=== PATIENT | male | born 1940 | race Caucasian/White ===

== ENCOUNTER 2022-06-03 08:54 | Outpatient (CLI) | payer MEDICARE, SELFPAY ==
--- NOTE | ~2022-06-03 | DEXA_ITS ---
Bone Density Report Name: IFEOMA JORGE V Age: 81 Sex: Male Ethnicity: White Date of : 1940 Indication: hyperparathyroidism; Referring Provider: FLACO LIU Study: Bone densitometry was performed. Exam Date: June 03, 2022 Accession number: [id number] Bone Density: Region BMD T-score Z-score Classification AP Spine(L1-L4) 0.916 -1.6 -0.4 Osteopenia Femoral Neck (Left) 0.659 -2.0 -0.4 Osteopenia Total Hip (Left) 0.908 -0.8 0.2 Normal Femoral Neck (Right) 0.634 -2.2 -0.6 Osteopenia Total Hip (Right) 0.881 -1.0 0.1 Normal Total Hip Mean 0.894 -0.9 0.2 Normal World Health Organization criteria for BMD impression classify patients as: Normal (T-score at or above -1.0), Osteopenia (T-score between -1.0 and -2.5), or Osteoporosis (T-score at or below -2.5). 10-year Fracture Risk(1): Major Osteoporotic Fracture 9.9% Hip Fracture 4.1% Reported Risk Factors: [place] (), Neck BMD=0.634, BMI=28.4 (1) FRAX(R) Version 3.08. Fracture probability calculated for an untreated patient. Fracture probability may be lower if the patient has received treatment. Clinical Information Provided by Patient: Has the following medical conditions: Hyperparathyroidism Patient maximum height was 70 No regular weight bearing exercise Drinks caffeinated beverages Impression: The patient has low bone mass, based on the Right Femoral Neck T-score. The patient has an estimated ten-year risk of hip fracture of 4.1% and an estimated ten-year risk of major fracture of 9.9%, based on the WHO FRAX algorithm. Discussion: BONE DENSITY IS LOW AT ONE OR MORE SKELETAL SITES. THE PATIENT'S BMD AND CLINICAL RISK FACTORS CONTRIBUTE TO THIS PATIENT'S INCREASED RISK OF FRACTURE. This patient's lowest T-score is low at one or more skeletal sites. It meets the World Health Organization's (WHO) criteria for ?low bone mass? (T-score between -1.0 and -2.5). The patient's 10-year risk of hip fracture as calculated by FRAX exceeds the threshold where pharmacological therapy is recommended by the National Osteoporosis Foundation (NOF). However, all treatment decisions require clinical judgment and consideration of individual patient factors, including patient preferences, comorbidities, previous drug use, risk factors not captured in the FRAX model (e.g., frailty, falls, vitamin D deficiency, increased bone turnover, interval significant decline in bone density) and possible under or overestimation of fracture risk by FRAX. The patient should follow a healthful lifestyle (good nutrition with adequate calcium and vitamin D, and appropriate weight-bearing exercise). Follow-Up: Consider repeating this study in 2 years to reassess this patient's status, or sooner if there is some new clinical indication. Reporte
== END 2022-06-03 08:55 | disposition home or self-care (01) ==
PROVIDERS: Visit Provider Internal Medicine Endocrinology, Diabetes & Metabolism
DX: E21.3 Hyperparathyroidism, unspecified (principal); E55.9 Vitamin D deficiency, unspecified; M85.88 Other specified disorders of bone density and structure, other site; M85.852 Other specified disorders of bone density and structure, left thigh; M85.851 Other specified disorders of bone density and structure, right thigh
CPT/HCPCS: 77080

== ENCOUNTER 2025-03-09 10:04 | Emergency (ER) | payer MEDICARE, SELFPAY ==
--- OUTSIDE RECORDS SUMMARY | 2025-02-16 08:15 | XMS_ITS ---
Author Name [facility] [place] [facility] Address [address] [place] [address] Care Team Providers Care Computer Peripheral Equipment Operator Name Role Phone TOBIAS MONTANEZ Primary Care Provider Unavaila ble Insurance Providers: All historical and current Section Date Range: From patient's date of to the date document was created. This section includes the names of all active insurance providers for the patient. Insurance Provider Type of Coverage Plan Name Start of Policy Coverage End of Policy Coverage Group Number Member ID Insurance Provider's Telephone Number Policy Lacey's Name Patient's Relationship to Policy Lacey AARP [facility] (WNR) MEDICARE ADVANTAGE [facility] (WNR) Jul 19, 2022 [id number] RIRI JORGED PATIENT MEDICARE (WNR) MEDICARE (M) PART A Aug 19, 2006 PART A [id number] RIRI JORGE MICHELLE PATIENT MEDICARE (WNR) MEDICARE (M) PART B Aug 19, 2006 PART B [id number] RIRI JORGED PATIENT Selected Encounter This section includes the information on record at [place] for the Encounter. Date/Time Encounter Type Encounter Description Reason Provider Source Feb 16, 2025 01:15 PM OFFICE O/P EST LOW 20 MIN DERMATOLOGY ICD-10-CM D49.2 Neoplasm of unsp behavior of bone, soft tissue, and skin KEATON WALL IHE Encounter Template Text not used by [place] Assessments - Encounter Diagnoses This section includes the primary and secondary diagnoses documented for the Encounter. Date/Time Primary/Secondary Diagnosis Diagnosis Name Provider Source Feb 16, 2025 01:42 PM PRIMARY Neoplasm of unsp behavior of bone, soft tissue, and skin KEATON WALL [facility] Feb 16, 2025 01:42 PM SECONDARY Actinic keratosis KEATON WALL [facility] Feb 16, 2025 01:42 PM SECONDARY Hemangioma of skin and subcutaneous tissue SARAH,CHRISTINE U [facility] Feb 16, 2025 01:42 PM SECONDARY Melanocytic nevi, unspecified SARAH,CHRISTINE U [facility] Feb 16, 2025 01:42 PM SECONDARY Other melanin hyperpigmentation SARAH,CHRISTINE U [facility] Feb 16, 2025 01:42 PM SECONDARY Other seborrheic keratosis [facility] Plan of Treatment: Future Appointments (+ 6 months) and Future Tests (+/- 45 days) The Plan of Treatment section includes future care activities for the patient from [facility]. This section includes future appointments and future orders which are active, pending or scheduled. Future Appointments This section includes appointments that were scheduled to occur 6 months from the date of the Encounter, up to a maximum of 20 appointments. The data comes from all [place] treatment facilities. Appointment Date/Time Appointment Type Appointme nt Facility Name Apr 24, 2025 02:30 PM AMBULATORY - MEDICINE [facility] Social History: Smoking Status (Most current) and Tobacco Use (All prior to encounter date) This section includes the most current, and the historical, smoking and tobacco- related health factors from the [place] facility where the Encounter took place. Current Smoking Status This section includes the most current smoking, or tobacco-related health factor, from the [place] facility where the Encounter took place. Date/Time Current Smoking Status Comment Roxana tyler Mar 29, 2024 01:16 PM [place]-TO[place]ACCO FORMER USER [facility] Tobacco Use History This section includes a history of the smoking, or tobacco-related health factors, that were collected on or before the date of the Encounter. The data comes from the [place] facility where the Encounter took place. Date/Time Smoking Status/Tobacco Use Comment Brian stephens Mar 29, 2024 01:16 PM [place]-TO[place]AC[place] QUIT 15 YRS OR MORE [facility] Encounter Notes: All associated encounter notes This section contains the clinical notes associated to the Encounter. Date/Time Encounter Note(s) Provider Source Feb 16, 2025 01:25 PM DERMATOLOGY NOTE: LOCAL TITLE: DERMATOLOGY NOTE STANDARD TITLE: DERMATOLOGY NOTE DATE OF NOTE: FEB 16, 2025@13:25 ENTRY DATE: FEB 16, 2025@13:25:29 AUTHOR: CHRISTINE JERONIMO EXP COSIGNER: KEATON WALL URGENCY: STATUS: COMPLETED DERMATOLOGY NOTE Has ADDENDA DERMATOLOGY NOTE CC: TREVOR IFEOMA JORGE is a 84 year old WHITE MALE with no hx of skin cancer, hx of AKs, that presents for FBSE. Concerns today: - Patient notes scaly spots on nose and scalp. - Has small lesion behind right ear. Says he think it could be a mosquito bite. Present for a few weeks. Not painful. Not growing. Otherwise, no new, changing, bleeding, non healing lesions of concern. Allergies: PENICILLIN ROS: no fever or chills, no non-healing sores, no mouth or genital sores. PE: - Scaly pink papules on nose x1, vertex scalp x3, L forehead x1, upper lip - mobile soft sq nodule right postauricular - Homogenous brown macules on the trunk/extremities - Homogenous red papules on the trunk/extremiites OTHERWISE General Appearance: Well-appearing MALE, NAD Face: WNL Ears: WNL Scalp, Hair: WNL Neck: WNL Chest: WNL Abd: WNL Back: WNL Upper Extremities: WNL Lower Extremities: WNL Nails: WNL Mood/Affect: WNL A/P: Actinic keratoses - Premalignant nature & risk of transformation to SCC reviewed. - Reviewed diagnosis and risk factors (sun exposure) - Treatment plan: - LN2 applied to x 6 lesions on vertex scalp, right nasal dorsu,, upper cutaneous lip for 5-8 secs today; blister care reviewed - Discussed Efudex in detail; still well controlled and not too extensive, but may be good option in future - Counseled on and reviewed sun protection strategies and skin cancer warning signs Sq Nodule - Right postauricular - DHR vs other mild soft tissue swelling vs reactive LN - Favor benign - Call in one month: if lesion still present, attain [place] ([place]) Seborrheic keratoses Sanchez Angiomas -Benign, reassurance Multiple benign nevi Lentigines - Benign reassurance provided - Recommend sunscreen with SPF30 or greater and sun protective clothing. - Reviewed sun protection strategies and skin cancer warning signs - Continue monthly self-skin exams and regular MD skin exams Return to clinic 6 mo /karen/ Christine Jeronimo MD Resident Physician Signed: 02/16/2025 13:42 /karen/ KEATON WALL MD Dermatology Attending Physician Cosigned: 02/16/2025 13:50 02/16/2025 ADDENDUM STATUS: COMPLETED Reviewed documentation and agree with history, physical examination, assessment, and plan. I was immediately available for the duration of the visit. /karen/ KEATON WALL MD Dermatology Attending Physician Signed: 02/16/2025 13:50 CHRISTINE JERONIMO [facility]
--- OUTSIDE RECORDS SUMMARY | 2025-02-27 06:15 | XMS_ITS | Continuity of Care Document ---
Author Name [facility] Organization [facility] Care Team Providers Care Mechanical Spreader Operator Name Role Phone [facility] Unavailable Unavailable Problems Combined list of problems from Department [facility] and [facility] facilities. It does not include entries that were removed or entered in error. Problem Status Onset Date Problem Type Date of Resolution Comments Source Hearing loss Active Condition [facility] History of macular degeneration Active Condition [facility] Hyperlipidemia Active Condition [facility] Hyperparathyroidism Active Condition [facility] Hypertension Active Condition [facility] Left ventricular hypertrophy Active Condition Jul 26, 2019 Entered By: JON MEDINA Comment: ECHO with EF 55-60% 07/20/2019 [facility] Diagnosis: ICD-10-CM D49.2 Neoplasm of unsp behavior of bone, soft tissue, and skin Active [facility] Diagnosis: ICD-10-CM I10 Essential (primary) hypertension Active Diagnosis [facility] Diagnosis: ICD-10-CM Z71.9 Counseling, unspecified Active Diagnosis [facility] Diagnosis: ICD-10-CM L57.0 Actinic keratosis Active Diagnosis [facility] Medications Combined list of outpatient medications from [facility] and [facility] facilities.Medications provided include 1) outpatient medications from the last 15 months, and 2) patient-reported medications. Medication Details Route Status Patient Instructions Prescription Expires Prescription Number Last Dispense Date Ordering Provider Order Date Order Qty Source AMLODIPINE BESYLATE 5MG TAB TAKE ONE TABLET BY MOUTH ONCE A DAY ORAL ACTIVE Aimee'GERARD MAHAJAN NESTOR A 2022 [facility] ASPIRIN 81MG TAB,EC TAKE ONE TABLET BY MOUTH ONCE A DAY ORAL ACTIVE Aimee'GERARD MAHAJAN NESTOR A 2021 [facility] FINASTERIDE 5MG TAB TAKE ONE TABLET BY MOUTH ONCE A DAY ORAL ACTIVE HIGH,ME TTISA 2023 [facility] FUROSEMIDE 20MG TAB TAKE ONE TABLET BY MOUTH EVERY MORNING ORAL ACTIVE HIGH,ME TTISA 2023 [facility] NEBIVOLOL 5MG TAB TAKE ONE TABLET BY MOUTH ONCE A DAY ORAL ACTIVE HIGH,ME TTISA 2023 [facility] NON-FORMULA RY TAB TAKE EYE SUPPORT BY MOUTH ONCE A DAY ORAL ACTIVE Aimee'GERARD MAHAJAN A 2021 [facility] SIMVASTATIN 80MG TAB TAKE ONE-HALF TABLET BY MOUTH EVERY EVENING ORAL ACTIVE Aimee'GERARD MAHAJAN NESTOR A 2021 [facility] Allergies, Adverse Reactions, Alerts Combined list of allergies from Department of Defense and Veterans Affairs facilities. It does not include entries that were removed or entered in error. Substance Category Reaction Severity Reaction type Status Date Reported Comments Source PENICILLIN Propensity to adverse reactions to drug (finding) active 9 [facility] Immunizations Combined list of available immunizations from the Department of [facility] and Veterans Affairs facilities. 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 Status Comments Source INFLUENZA, HIGH-DOSE, TRIVALENT, PF 2023 MEGAN ABARCA A RIGHT DELTO ID [id number] 135 complet ed Completed Series, [place], [facility] INFLUENZA, ADJUVANTED, QUADRIVALENT, PF 1 2022 205 complet ed HISTORICA L INFORMATI ON - FROM OTHER REGISTRY, [facility] INFLUENZA, HIGH-DOSE, QUADRIVALENT 6 2021 197 complet ed HISTORICA L INFORMATI ON - FROM OTHER [facility], [facility] INFLUENZA VACCINE, QUADRIVALENT, ADJUVANTED 2020 205 complet ed [facility] ZOSTER RECOMBINANT 2 2020 187 complet ed [facility] PNEUMOCOCCAL POLYSACCHARID E PPV23 2020 NONE 33 complet ed Completed Series, [facility] ZOSTER RECOMBINANT 1 2020 NONE 187 complet ed [facility] COVID-19 (PFIZER), MRNA, LNP-S, PF, 30 MCG/0.3 ML DOSE 2 2020 208 complet ed PFR; [id number]; 1 [facility] COVID-19 (PFIZER), MRNA, LNP-S, PF, 30 MCG/0.3 ML DOSE 1 2020 208 complet ed PFR; [id number]; 1 [facility] INFLUENZA, HIGH-DOSE, QUADRIVALENT 5 2019 197 complet ed HISTORICA L INFORMATI ON - FROM OTHER REGISTRY, [facility] INFLUENZA, UNSPECIFIED FORMULATION 2019 88 complet ed [facility] INFLUENZA, INJECTABLE, QUADRIVALENT, PRESERVATIVE FREE 2018 150 complet ed [facility] TDAP 1 2018 115 complet ed HISTORICA L INFORMATI ON - FROM OTHER REGISTRY, [facility] INFLUENZA, HIGH DOSE SEASONAL 4 2017 135 complet ed HISTORICA L INFORMATI ON - FROM OTHER REGISTRY, [facility] N PNEUMOCOCCAL POLYSACCHARID E PPV23 1 2017 33 complet ed HISTORICA L INFORMATI ON - FROM OTHER REGISTRY, [facility] N INFLUENZA, HIGH DOSE SEASONAL 3 2016 135 complet ed HISTORICA L INFORMATI ON - FROM OTHER REGISTRY, [facility] N INFLUENZA, HIGH DOSE SEASONAL 2 2015 135 complet ed HISTORICA L INFORMATI ON - FROM OTHER REGISTRY, [facility] N INFLUENZA, HIGH DOSE SEASONAL 1 2014 135 complet ed HISTORICA L INFORMATI ON - FROM OTHER REGISTRY, [facility] N Vital Signs Combined list of inpatient and outpatient Vital Signs from Department of Defense and Veterans Affairs, ranging from 12 months to all on record, depending upon the facility. Vital Sign Value Date Comments Source SYSTOLIC BLOOD PRESSURE 165 04/04/2024 09:59:45 [facility] DIASTOLIC BLOOD PRESSURE 75 04/04/2024 09:59:45 [facility] PULSE OXIMETRY 96 04/04/2024 09:59:45 S Williams CELESTE [facility] WEIGHT 198 04/04/2024 09:59:[facility] BMI 28 kg/m2 04/04/2024 09:59:[facility] PAIN 0 04/04/2024 09:59:45 [facility] HEIGHT 70 04/04/2024 09:59:[address] [facility] TEMPERATURE 98.4 04/04/2024 09:59:45 [facility] CE[facility] PULSE 63 04/04/2024 09:59:[facility] RESPIRATION 18 04/04/2024 09:59:45 [facility] Encounters Combined list of: 1) Encounters from Department of Veterans Affairs facilities going backup to the last 18 months, not all VA inpatient encounters are included; 2) Encounters from the Department of [facility] facilities going backup to 280 months. Location Location Details Encounter Type Encounter Number Reason For Visit Attending Provider ADM Date DC Date Status Disposition Source [facility] OFFICE O/P EST LOW 20 MIN [id number] Diagnos is: ICD-10- CM L57.0 Actinic keratos is MARTI HOOVER 01/27 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 OFFICE O/P EST LOW 20 MIN [id number] Diagnos is: ICD-10- CM D49.2 Neoplas m of unsp behavio r of bone, soft tissue, and skin AB DUKE BY RR 02/16 [facility] Social History Combined list of available smoking, tobacco, and other social history from Department of Defense and [facility] Affairs facilities. Social History Type Response Date Comment Sourc e Tobacco smoking status NHIS [facility]-TO[facility]ACCO FORMER USER 03/29/2024 [facility] History of tobacco use [place] 1 5 YRS OR MORE 03/29/2024 [facility] History of tobacco use [place] FOR[place] US[place] 04/07/2023 [facility] History of tobacco use [place] FOR[place] 04/08/2022 [facility] History of tobacco use [place] FOR[place] 12/25/2020 [facility] History of tobacco use [place] 1 5 YRS OR MORE 06/27/2019 [facility] Plan of Care List of future care activities from Department [facility] facilities. Additional future care activities may be listed in the Assessment and Plan section. Date/Time Care Activity Care Activity Detail Facili ty 04/24/2025 AMBULATORY - MEDICINE AMBULATORY - MEDICI NE [facility]
--- OUTSIDE RECORDS SUMMARY | 2025-02-27 06:15 | XMS_ITS | Continuity of Care Document ---
Author Name [facility] Organization [facility] Care Team Providers Care Parts Designer Name Role Phone [facility] Unavailable Unavailable Problems Combined list of problems from Department [facility] and [facility] facilities. It does not include entries that were removed or entered in error. Problem Status Onset Date Problem Type Date of Resolution Comments Source Hearing loss Active Condition [facility] History of macular degeneration Active Condition [facility] Hyperlipidemia Active Condition [facility] Hyperparathyroidism Active Condition [facility] Hypertension Active Condition [facility] Left ventricular hypertrophy Active Condition Jul 26, 2019 Entered By: JON MEDINA Comment: ECHO with EF 55-60% 07/20/2019 [facility] Diagnosis: ICD-10-CM D49.2 Neoplasm of unsp behavior of bone, soft tissue, and skin Active [facility] Diagnosis: ICD-10-CM I10 Essential (primary) hypertension Active Diagnosis [facility] Diagnosis: ICD-10-CM Z71.9 Counseling, unspecified Active Diagnosis [facility] Diagnosis: ICD-10-CM L57.0 Actinic keratosis Active Diagnosis [facility] Medications Combined list of outpatient medications from [facility] and [facility] facilities.Medications provided include 1) outpatient medications from the last 15 months, and 2) patient-reported medications. Medication Details Route Status Patient Instructions Prescription Expires Prescription Number Last Dispense Date Ordering Provider Order Date Order Qty Source AMLODIPINE BESYLATE 5MG TAB TAKE ONE TABLET BY MOUTH ONCE A DAY ORAL ACTIVE Aimee'GERARD MAHAJAN NESTOR A 2022 [facility] ASPIRIN 81MG TAB,EC TAKE ONE TABLET BY MOUTH ONCE A DAY ORAL ACTIVE Aimee'GERARD MAHAJAN NESTOR A 2021 [facility] FINASTERIDE 5MG TAB TAKE ONE TABLET BY MOUTH ONCE A DAY ORAL ACTIVE HIGH,ME TTISA 2023 [facility] FUROSEMIDE 20MG TAB TAKE ONE TABLET BY MOUTH EVERY MORNING ORAL ACTIVE HIGH,ME TTISA 2023 [facility] NEBIVOLOL 5MG TAB TAKE ONE TABLET BY MOUTH ONCE A DAY ORAL ACTIVE HIGH,ME TTISA 2023 [facility] NON-FORMULA RY TAB TAKE EYE SUPPORT BY MOUTH ONCE A DAY ORAL ACTIVE Aimee'GERARD MAHAJAN A 2021 [facility] SIMVASTATIN 80MG TAB TAKE ONE-HALF TABLET BY MOUTH EVERY EVENING ORAL ACTIVE Aimee'GERARD MAHAJAN NESTOR A 2021 [facility] Allergies, Adverse Reactions, Alerts Combined list of allergies from Department of Defense and Veterans Affairs facilities. It does not include entries that were removed or entered in error. Substance Category Reaction Severity Reaction type Status Date Reported Comments Source PENICILLIN Propensity to adverse reactions to drug (finding) active 9 [facility] Immunizations Combined list of available immunizations from the Department of [facility] and Veterans Affairs facilities. 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 Status Comments Source INFLUENZA, HIGH-DOSE, TRIVALENT, PF 2023 MEGAN ABARCA A RIGHT DELTO ID [id number] A 135 complet ed Completed Series, ADMINISTE RED AT CT, [facility] INFLUENZA, ADJUVANTED, QUADRIVALENT, PF 1 2022 205 complet ed HISTORICA L INFORMATI ON - FROM OTHER REGISTRY, [facility] INFLUENZA, HIGH-DOSE, QUADRIVALENT 6 2021 197 complet ed HISTORICA L INFORMATI ON - FROM OTHER [facility], [facility] INFLUENZA VACCINE, QUADRIVALENT, ADJUVANTED 2020 205 complet ed [facility] ZOSTER RECOMBINANT 2 2020 187 complet ed [facility] PNEUMOCOCCAL POLYSACCHARID E PPV23 2020 NONE 33 complet ed Completed Series, [facility] ZOSTER RECOMBINANT 1 2020 NONE 187 complet ed [facility] COVID-19 (PFIZER), MRNA, LNP-S, PF, 30 MCG/0.3 ML DOSE 2 2020 208 complet ed PFR; [id number]; 1 [facility] COVID-19 (PFIZER), MRNA, LNP-S, PF, 30 MCG/0.3 ML DOSE 1 2020 208 complet ed PFR; [id number]; 1 [facility] INFLUENZA, HIGH-DOSE, QUADRIVALENT 5 2019 197 complet ed HISTORICA L INFORMATI ON - FROM OTHER REGISTRY, [facility] INFLUENZA, UNSPECIFIED FORMULATION 2019 88 complet ed [facility] INFLUENZA, INJECTABLE, QUADRIVALENT, PRESERVATIVE FREE 2018 150 complet ed [facility] TDAP 1 2018 115 complet ed HISTORICA L INFORMATI ON - FROM OTHER REGISTRY, [facility] INFLU[facility], HIGH DOSE SEASONAL 4 2017 135 complet ed HISTORICA L INFORMATI ON - FROM OTHER REGISTRY, [facility] N PNEUMOCOCCAL POLYSACCHARID E PPV23 1 2017 33 complet ed HISTORICA L INFORMATI ON - FROM OTHER REGISTRY, [facility] INFLUENZA, HIGH DOSE SEASONAL 3 2016 135 complet ed HISTORICA L INFORMATI ON - FROM OTHER REGISTRY, [facility] INFLUENZA, HIGH DOSE SEASONAL 2 2015 135 complet ed HISTORICA L INFORMATI ON - FROM OTHER REGISTRY, [facility] INFLUENZA, HIGH DOSE SEASONAL 1 2014 135 complet ed HISTORICA L INFORMATI ON - FROM OTHER REGISTRY, [facility] N Vital Signs Combined list of inpatient and outpatient Vital Signs from Department of Defense and Veterans Affairs, ranging from 12 months to all on record, depending upon the facility. Vital Sign Value Date Comments Source SYSTOLIC BLOOD PRESSURE 165 04/04/2024 09:59:45 [facility] DIASTOLIC BLOOD PRESSURE 75 04/04/2024 09:59:45 [facility] PULSE OXIMETRY 96 04/04/2024 09:59:45 S Williams CELESTE [facility] WEIGHT 198 04/04/2024 09:59:[facility] BMI 28 kg/m2 04/04/2024 09:59:[facility] PAIN 0 04/04/2024 09:59:[address] [facility] HEIGHT 70 04/04/2024 09:59:[address] [facility] TEMPERATURE 98.4 04/04/2024 09:59:45 [facility] PULSE 63 04/04/2024 09:59:[facility] RESPIRATION 18 04/04/2024 09:59:45 [facility] Encounters Combined list of: 1) Encounters from Department of Veterans Affairs facilities going backup to the last 18 months, not all VA inpatient encounters are included; 2) Encounters from the Department of [facility] facilities going backup to 280 months. 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 OFFICE O/P EST LOW 20 MIN [id number] Diagnos is: ICD-10- CM D49.2 Neoplas m of unsp behavio r of bone, soft tissue, and skin AB DUKE BY RR 02/16 [facility] Social History Combined list of available smoking, tobacco, and other social history from Department of Defense and [facility] Affairs facilities. Social History Type Response Date Comment Sourc e Tobacco smoking status NHIS VA-TOBACCO FORMER USER 03/29/2024 [facility] History of tobacco use CT-TOBACCO QUIT 1 5 YRS OR MORE 03/29/2024 [facility] History of tobacco use CT-TOBACCO FORMER USER 04/07/2023 [facility] History of tobacco use CT-TOBACCO FORMER USER 04/08/2022 [facility] History of tobacco use CT-TOBACCO FORMER USER 12/25/2020 [facility] History of tobacco use CT-TOBACCO QUIT 1 5 YRS OR MORE 06/27/2019 [facility] Plan of Care List of future care activities from Department [facility] facilities. Additional future care activities may be listed in the Assessment and Plan section. Date/Time Care Activity Care Activity Detail Facili ty 04/24/2025 AMBULATORY - MEDICINE AMBULATORY - MEDICI NE [facility]
--- NOTE | ~2025-03-09 | XR_ITS ---
EXAMINATION: XR wrist LT min 3V DATE: 03/09/2025 10:51 INDICATION: Left wrist injury and swelling TECHNIQUE: Posteroanterior, ulnar deviation, oblique, and lateral views of the left wrist were obtained. COMPARISON: none FINDINGS: Bone alignment is normal. There are couple small ossific densities project over the soft tissues dorsal to the level of the midcarpal joint with couple additional small ossific density projecting volar to the lunate on the lateral projection most likely either degenerative loose bodies or heterotopic ossicles related to chronic soft tissue injury. Could not exclude a distracted avulsion fracture arising from the dorsum of the triquetrum although a the margins of the ossicle appears corticated and no definitive donor site is not identified and suspicion for fracture is low. Polyarticular osteoarthritis, moderate severity at the first carpometacarpal joint and mild at the distal radioulnar, wrist, mi dcarpal, triscaphe, first metacarpophalangeal and first interphalangeal joints. IMPRESSION: 1. Small ossific density possibly related to a dorsal triquetral avulsion fracture although given appearance would favor either a degenerative loose body or heterotopic ossicle related to more chronic injury. Correlate for point tenderness at the dorsal ulnar aspect of the carpus. 2. Mild to moderate polyarticular osteoarthritis at the visualized left hand and wrist greatest at the first carpometacarpal joint. Reviewed, dictated and finalized at location A. IMPRESSION: 1. Small ossific density possibly related to a dorsal triquetral avulsion fract ure although given appearance would favor either a degenerative loose body or h eterotopic ossicle related to more chronic injury. Correlate for point tenderne ss at the dorsal ulnar aspect of the carpus. 2. Mild to moderate polyarticular osteoarthritis at the visualized left hand an d wrist greatest at the first carpometacarpal joint.
--- OUTSIDE RECORDS SUMMARY | 2025-03-09 10:07 | XMS_ITS | Clinical Summary ---
Author Organization [facility] Address [address] [facility] [place] [address] Phone Care Team Providers Care Actuarial Mathematician Name Role Phone Christiano Ivan MD Primary Care Provider [phone] Allergies Active Allergy Reactions Criticality Noted Date Comments Penicillin Other (See Comments) 07/07/2019 Medications aspirin (ECOTRIN EC) 81 mg Tablet, Delayed Release (E.C.) Take 81 mg by mouth daily. 2 Active simvastatin (ZOCOR) 80 mg tablet Take 40 mg by mouth daily. 2 Active OMEGA-3 FATTY ACIDS-FISH OIL ORAL Take by mouth. Active testosterone (ANDROGEL) 20.25 mg/1.25 gram (1.62 %) Gel in Metered-dose Pump Apply to affected area daily. 4 Active finasteride (PROSCAR) 5 mg tablet Take 5 mg by mouth daily. 4 Active lisinopriL (PRINIVIL) 40 mg tablet Take 1 Tablet (40 mg) by mouth daily. 90 Tablet 3 4 Active amLODIPine (NORVASC) 5 mg tabletIndicatio ns:Edema of both legs Take 1 Tablet (5 mg) by mouth daily. 90 Tablet 3 5 Active vit A/vit C/vit E/zinc/copper (ICAPS AREDS ORAL) Take by mouth. Active vitamin D3/vitamin K2, MK4, (K2 PLUS D3 ORAL) Take 120 mcg by mouth. Active hydroCHLOROthia zide 25 mg tablet Take 1 Tablet (25 mg) by mouth daily. 90 Tablet 3 5 Active nebivoloL (BYSTOLIC) 5 mg Tablet Take 1 Tablet (5 mg) by mouth daily. 90 Tablet 3 5 Active nebivoloL (BYSTOLIC) 5 mg Tablet Take 5 mg by mouth daily. 2 02/28/20 25 Discontinu ed(Reorder ) Active Problems Patient Care Coordination No te Formatting of this note migh t be different from the original. Surjit Ornelas MD--Motel Keeper ([facility] @ ) Problem Noted Date Diagnosed Date Edema of both legs 12/03/2023 Venous insufficiency of right leg 12/03/2023 Benign hypertension 12/03/2023 DONALD (dyspnea on exertion) 11/03/2023 Encounters Date Type Department Care Team Description 03/08/2025 Telephone [facility] At [address] [place] [address] Surjit Ornelas MD Labs Only 03/06/2025 External Device Data STL ABSTRACTION Provider, Abstract 03/06/2025 External Device Data STL ABSTRACTION Provider, Abstract 02/27/2025 11:15 AM CDT Office Visit [facility] [address] [place] [address] Surjit Ornelas MD Benign hypertension (Primary Dx); Edema of both legs; Encounter for pre-operative cardiovascular clearance 01/31/2025 External Device Data STL ABSTRACTION Provider, Abstract 01/31/2025 External Device Data STL ABSTRACTION Provider, Abstract 01/31/2025 External Device Data STL ABSTRACTION Provider, Abstract 01/30/2025 External Device Data STL ABSTRACTION Provider, Abstract 01/02/2025 External Device Data STL ABSTRACTION Provider, Abstract 12/12/2024 External Device Data STL ABSTRACTION Provider, Abstract 12/07/2024 External Device Data STL ABSTRACTION Provider, Abstract from Last 3 Months Social History Tobacco Use Types Packs/Day Years Used Date Smoking Tobacco: Never Smokeless Tobacco: Never Tobacco Cessation:Counseling Given: Not Answered Alcohol Use Standard Drinks/Week Comments Not Currently 1 (1 standard drink = 0.6 oz pur e alcohol) Sex and Gender Information Value Date Recorded Sex Assigned at Not on file Legal Sex Male 1:10 PM CDT Gender Identity Not on file Sexual Orientation Not on file Last Filed Vital Signs Vital Sign Reading Time Taken Comments Blood Pressure 150/78 02/27/2025 11:19 AM CDT Pulse 54 02/27/2025 11:19 AM CDT Temperature - - Respiratory Rate - - Oxygen Saturation 97% 02/27/2025 11:19 AM CDT Inhaled Oxygen Concentration - - Weight 88.5 kg (195 lb) 02/27/2025 11:19 AM CDT Height 177.8 cm (5' 10) 02/27/2025 11:19 AM CDT Body Mass Index 27.98 02/27/2025 11:19 AM CDT Plan of Treatment Upcoming Encounters Date Type Department Care Team (Late st Contact Info) Description 10/09/2025 11:30 AM CDT Office Visit [facility] At [address] [place] [address] Surjit Ornelas MD [address] [place] [address] [address] [place] [address] Health Maintenance Due Date Last Done Comments RSV VACCINE (60+ or ) (1 - 1-dose 75+ series) 2016 PNEUMOCOCCAL VACCINE 50+ YEA RS (2 of 2 - PCV) 12/25/2021 12/25/2020, 05/16/2018 COVID-19 Vaccine (3 - 2023-2 5 season) 2024 09/11/2020, 08/21/2020 INFLUENZA VACCINE (#1) 2025 , 05/25/2023, 06/14/2022, Additional history exists DTAP/TDAP/TD VACCINES (2 - T d or Tdap) 11/28/2028 11/28/2018 ZOSTER VACCINE Completed 04/25/2021, 12/25/2020 Insurance [facility] [id number] Care Teams Actuarial Mathematician Relationship Specialty Start Date End Date Christiano Ivan MD [facility] [place] [phone] PCP - General Family Practice 11/03/23
--- OUTSIDE RECORDS SUMMARY | 2025-03-09 10:07 | XMS_ITS | Encounter Summary ---
Author Organization [facility] Address [address] [place] [address] Care Team Providers Care Spray Crew Name Role Phone Christiano Ivan MD Primary Care Provider [phone] Reason for Visit * Reason Onset Date Comments Labs Only 03/08/2025 Encounter Details Date Type Department Care Team (Late st Contact Info) Description 03/08/2025 Telephone [facility] At [address] [place] [address] Surjit Ornelas MD [address] [place] [address] [address] [place] [address] Labs Only Social History Tobacco Use Types Packs/Day Years Used Date Smoking Tobacco: Never Smokeless Tobacco: Never Alcohol Use Standard Drinks/Week Comments Not Currently 1 (1 standard drink = 0.6 oz pur e alcohol) Sex and Gender Information Value Date Recorded Sex Assigned at Not on file Legal Sex Male 1:10 PM CDT Gender Identity Not on file Sexual Orientation Not on file documented as of this encounter Miscellaneous Notes * Telephone Encounter - Elliot Cabrera RN - 03/08/2025 11:48 AM CDT PC to pt. He explains he was supposed to have blood test following change to his diuretic. Pt also has not had recent lipid panel to send us, per PAVAN. Lipid panel and BMP ordered. Instructions pgiven. Pt verbalizes understanding. No further questions at this time. * Telephone Encounter - RejigeorgeTomasTanja Trevor - 03/08/2025 10:50 AM CDT Pt called today and thought he was suppose to go have blood work done but there is no lipid order in his chart [id number] Thanks documented in this encounter Plan of Treatment Upcoming Encounters Date Type Department Care Team (Late st Contact Info) Description 10/09/2025 11:30 AM CDT Office Visit [facility] At [place] [address] [address] [place] [address] Surjit Ornelas MD [facility] [address] [place] [address] Pending Results Name Type Priority Associated Diagnoses Date /Time BASIC METABOLIC PANEL Lab Routine Edema of both legs Benign hypertension Mixed hyperlipidemia 03/09/2025 9:53 AM CDT LIPID PANEL Lab Routine Mixed hyperlipidemia 03/09/2025 9:53 AM CDT Scheduled Orders Name Type Priority Associated Diagnoses Orde r Schedule BASIC METABOLIC PANEL Lab Routine Edema of both legs Benign hypertension Mixed hyperlipidemia Expected: 03/08/2025, Expires: 03/08/2026 LIPID PANEL Lab Routine Mixed hyperlipidemia Expected: 03/08/2025, Expires: 03/08/2026 documented as of this encounter Visit Diagnoses Diagnosis Mixed hyperlipidemia- Primary Edema of both legs Edema Venous insufficiency of right leg Benign hypertension Essential hypertension, benign documented in this encounter Care Teams Spray Crew Relationship Specialty Start Date End Date Christiano Ivan MD [address] [place] [phone] PCP - General Family Practice 11/03/23 documented as of this encounter
--- OUTSIDE RECORDS SUMMARY | 2025-03-09 10:07 | XMS_ITS | Clinical Summary ---
Author Organization [facility] Address [address] [place] [address] Care Team Providers Care Fisher Clam Name Role Phone Joselin Vences PA-C Primary Care Provider [phone] Social History Tobacco Use Types Packs/Day Years Used Date Smoking Tobacco: Never Assessed Sex and Gender Information Value Date Recorded Sex Assigned at Not on file Legal Sex Male 8:25 PM CDT Gender Identity Not on file Sexual Orientation Not on file Plan of Treatment Health Maintenance Due Date Last Done Comments Annual Medicare Wellness Visit 2006 RSV Immunization or 60+ Years (1 - 1-dose 75+ series) 2016 Pneumococcal Vaccine: 50+ Years (2 of 2 - PCV) 12/25/2021 12/25/2020, 05/16/2018 COVID-19 Vaccine (3 - 2023-2 5 season) 2024 09/11/2020, 08/21/2020 DTaP, Tdap and Td Vaccines ( 2 - Td or Tdap) 11/28/2028 11/28/2018 Zoster Vaccines Completed 04/25/2021, 12/25/2020 Meningococcal B Vaccine Aged Out No l onger eligible based on patient's age to complete this topic Meningococcal Vaccine Aged Out No miryam jj eligible based on patient's age to complete this topic RSV Immunizations Under 20 Months Aged Out No longer eligible b ased on patient's age to complete this topic Insurance Care Teams Fisher Clam Relationship Specialty Start Date End Date Joselin Vences PA-C [address] [place], [place] [id number] [place] [address] PCP - General PHYSICIAN HANDER IN 10/16/24
[2025-03-09 10:14] VITALS: BP 155/71; PULSE 56; RESP 18; TEMP 36.2; O2SAT 98
--- NOTE | 2025-03-09 10:33 | ED_ITS ---
HPI - Extremity Injury (Upper) General Chief Complaint: Extremity Injury, Upper Stated Complaint: Swollen L Hand Time Seen by Provider: 03/09/25 10:32 Source: patient and RN notes reviewed Mode of arrival: ambulatory Limitations: no limitations History of Present Illness HPI narrative: 84-year-old male presents with concern for left wrist swelling. He reports a few days ago he fell off the ladder and has had mid wrist pain and swelling. He has been wearing a brace. He denies any decreased strength, sensation, range of motion in the wrist or digits. MD complaint: injury to: left and wrist Related Data Home Medications ?Medication ?Instructions ?Recorded ?Confirmed ?Last Taken ?Type aspirin 81 mg tablet,delayed 81 mg PO DAILY 12/09/20 0 03/09/25 Unknown History release (Adult Low Dose Aspirin) Eye Support Suuplement [facility] 04/02/22 12/05/24 Un known History Memory and Brain Supplement [facility] 04/02/22 12/05/24 Unknown History omega 1-mut-tva-fish oil 100 cap PO 11/11/22 12/05/24 Unknown History mg-160 mg-1,000 mg capsule (Fish Oil) vitamin K2 45 mcg capsule 45 mcg PO DAILY 11/30/23 Unknown History hydrochlorothiazide 25 mg tablet mg 03/09/25 Unknown History Allergies Allergy/AdvReac Type Severity Reaction Status Date / Time poison jordan extract Allergy Intermediate rash Verified 03/09/25 10:18 Penicillins Allergy Mild rash Verified 03/09/25 10:18 Review of Systems Review of Systems: CONSTITUTIONAL: Denies malaise, chills, sweats, or fever. SKIN: Denies rash or itching, open skin, laceration, abrasion, redness, warmth MUSCULOSKELETAL: Reports left wrist pain and swelling NEUROLOGIC: Denies numbness, weakness All systems reviewed & are unremarkable except as noted in HPI and below PMFSH Past Medical History Medical History Macular degeneration Vitamin D deficiency, unspecified Osteopenia Hyperparathyroidism Testicular hypofunction Hyperglycemia, unspecified Essential (primary) hypertension Hyperlipidemia GERD (gastroesophageal reflux disease) Arthritis Enlarged RV (right ventricle) Surgical History Surgical History History of right cataract surgery History of tonsillectomy at age 6 Family History Family History (Reviewed 01/15/25 @ 10:13 by Natali Turner [facility]) Grandparent Diabetes mellitus Father Cerebrovascular accident Mother Lung cancer Sibling Lung cancer Heart disease Social History Social History (Reviewed 01/15/25 @ 10:13 by Natali Turner [facility]) Social History: 01/15/25 Patient declined SDOH Smoking status: Never smoker Second hand tobacco smoke exposure: No Alcohol intake: current Drinks per week: 14 Alcohol use details: beer Substance use: never Substance use type: does not use Lack of Transportation: No Lack of Food: Never True Current Housing: I Have Housing Concerned About Future Housing: No Difficulty Paying Gas/Electric Bills: No Difficulty Paying for Meds: No Currently Unemployed: No Education: High School Diploma/GED Difficulty w/ Childcare or Family Care: No Living arrangements: with family Occupation/Education: retired Gender identity (if verbalized by the patient): Male Spiritual care concerns: No Agree to blood products: Yes Comments At time of signature, agree with nursing past medical, surgical, social and family history. There is no relevant family history pertinent to the presenting complaint Exam Narrative: GENERAL: Well-appearing, well-nourished, and in no acute distress. HEAD: Normocephalic, atraumatic. EYES: PERRLA, conjunctivae clear NECK: Supple. CHEST: Speaks in full sentences. No respiratory distress. HEART: Regular rate and rhythm. Normal and equal peripheral pulses. EXTREMITIES: Left wrist, hand, digits have grossly normal strength and sensation, grossly normal range of motion. Moderate wrist and hand edema witho ut erythema, warmth, ecchymosis. 5/5 strength with wrist in digit flexion and extension. Normal sensation with sensitivity to light touch and pain. Mid wrist tenderness, no other tenderness noted. No open wounds, no skin tenting, no devitalized tissue or atrophy, no trophic changes, no obvious deformity, alignment normal, nearby joints and structures intact. Distal pulses palpable and equal bilaterally, skin warm, dry, pink. Capillary refill less than 3 seconds. SKIN: Warm, dry, no rash. NEURO: Alert and oriented x3. PSYCH: Normal mood and affect Course Course Emergency Course: Patient has been wearing a brace that does not allow movement of the wrist. Patient like to wear brace and does not want a splint applied urgent care today. Patient's brace is adult currently a stabilizing the wrist. Patient is aware of diagnosis, understands and agrees to treatment plan. Anticipatory guidance given. Patient agrees to follow-up as directed and is aware of reasons to seek care at the emergency department. Portions of this record may have been created with voice recognition software Level of Care: Express Care Visit Vital Signs Vital signs: Vital Signs Temperature 97.1 F L 03/09/25 10:14 Pulse Rate 56 L 03/09/25 10:14 Respiratory Rate 18 03/09/25 10:14 Blood Pressure 155/71 H 03/09/25 10:14 Pulse Oximetry 98 03/09/25 10:14 Oxygen Delivery Room Air 03/09/25 10:14 Temperature 97.1 F L 03/09/25 10:14 Pulse Rate 56 L 03/09/25 10:14 Respiratory Rate 18 03/09/25 10:14 Blood Pressure 155/71 H 03/09/25 10:14 Pulse Oximetry 98 03/09/25 10:14 Oxygen Delivery Room Air 03/09/25 10:14 Reviewed. MDM - Extremity Injury (Upper) MDM Narrative Medical decision making narrative: Patients injury and pain is consistent with musculoskeletal etiology. No signs of neurological or vascular compromise on exam. Compartments and tissues are soft without signs of compartment syndrome. Pain is felt appropriate for further evaluation on an outpatient basis. Imaging Data My impression: Images reviewed, interpreted by radiologist, agree, see report. Radiologist's impression: EXAMINATION: XR wrist LT min 3V DATE: 03/09/2025 10:51 INDICATION: Left wrist injury and swelling TECHNIQUE: Posteroanterior, ulnar deviation, oblique, and lateral views of the left wrist were obtained. COMPARISON: none FINDINGS: Bone alignment is normal. There are couple small ossific densities project over the soft tissues dorsal to the level of the midcarpal joint with couple additional small ossific density projecting volar to the lunate on the lateral projection most likely either degenerative loose bodies or heterotopic ossicles related to chronic soft tissue injury. Could not exclude a distracted avulsion fracture arising from the dorsum of the triquetrum although a the margins of the ossicle appears corticated and no definitive donor site is not identified and suspicion for fracture is low. Polyarticular osteoarthritis, moderate severity at the first carpometacarpal joint and mild at the distal radioulnar, wrist, midcarpal, triscaphe, first metacarpophalangeal and first interphalangeal joints. IMPRESSION: 1. Small ossific density possibly related to a dorsal triquetral avulsion fracture although given appearance would favor either a degenerative loose body or heterotopic ossicle related to more chronic injury. Correlate for point tenderness at the dorsal ulnar aspect of the carpus. 2. Mild to moderate polyarticular osteoarthritis at the visualized left hand and wrist greatest at the first carpometacarpal joint. Critical Care Time Critical Care Time Critical Care Time: No Discharge Plan Discharge Clinical Impression: Fracture of triquetral bone of left wrist Patient Disposition: Home Condition: Stable Instructions: Wrist Fracture in Adults (ED) Additional Instructions: Please rest, ice and elevate the affected extremity. Please take Motrin 600mg every 8 hours, as needed, for pain (take with food). Follow up with Orthopedic Surgery in 1-2 days for further evaluation - please call for an appointment. Keep splint on. Please go to ER immediately for increased pain, tingling/numbness, swelling, redness, and fever Patient Language: Vietnamese Prescriptions: No Action hydrochlorothiazide 25 mg tablet Memory and Brain Supplement [facility] Eye Support Suuplement [facility] Fish Oil 100-160-1,000 mg capsule PO vitamin K2 45 mcg capsule 45 mcg PO DAILY aspirin [Adult Low Dose Aspirin] 81 mg tablet,delayed release (DR/EC) 81 mg PO DAILY furosemide 20 mg tablet 30 mg PO DAILY Qty: 135 1RF simvastatin 40 mg tablet 40 mg PO DAILY Qty: 90 1RF nebivolol 10 mg tablet 10 mg PO DAILY Qty: 90 1RF lisinopril 40 mg tablet 40 mg PO DAILY Qty: 90 0RF amlodipine 5 mg tablet 5 mg PO DAILY Qty: 90 0RF finasteride 5 mg tablet 5 mg PO DAILY Qty: 90 1RF Follow-up/Referrals: Joselin Vences PA-C [Primary Care Provider, Family Practice] Tim Mccormack MD [Physician, Orthopedics] Referral Note: triquetral fracture Time of Disposition: 11:14
== END 2025-03-09 11:15 | disposition home or self-care (01) ==
PROVIDERS: Emergency Provider Nurse Practitioner; PCP Physician Assistant Medical
DX: S62.112A Displaced fracture of triquetrum [cuneiform] bone, left wrist, initial encounter for closed fracture (principal); W11.XXXA Fall on and from ladder, initial encounter; I10 Essential (primary) hypertension; E78.5 Hyperlipidemia, unspecified; K21.9 Gastro-esophageal reflux disease without esophagitis; M19.90 Unspecified osteoarthritis, unspecified site; E21.3 Hyperparathyroidism, unspecified; M85.80 Other specified disorders of bone density and structure, unspecified site; E55.9 Vitamin D deficiency, unspecified; H35.30 Unspecified macular degeneration
CPT/HCPCS: 73110; 99213; G0463